=== PATIENT | female | born 1975 ===

== ENCOUNTER 2017-08-18 05:11 | Day surgery (SDC) | payer BC, OTHER ==
[2017-08-17 11:49] VITALS: BMI 25.9
--- NOTE | 2017-08-18 09:20 | HP ---
History & Physical Update - History History: No Change - Physical Physical: No Change - Assessment Assessment: No Change - Plan Plan: No Change (H&P up-to-date from 07/29/17 Consent signed and witnessed)
[2017-08-18] MEDS ORDERED: ONDANSETRON 4 MG/2 ML VIAL IVPUSH PRN (09:34)
[2017-08-18] MEDS ORDERED: IBUPROFEN 600 MG TABLET (FP) PO PRN (09:34)
[2017-08-18] MEDS ORDERED: oxyCODONE HCL 5 MG TABLET PO PRN (09:34)
[2017-08-18] MEDS ORDERED: IBUPROFEN 800 MG/8 ML IJ IVPB PRN (09:34)
[2017-08-18] MEDS ORDERED: MIDAZOLAM HCL 2 MG/2 ML SINGLE DOSE VIAL ONE (09:38)
--- NOTE | 2017-08-18 09:38 | OP ---
Operative Note - Note: Operative Date: 08/18/17 Pre-Operative Diagnosis: 42yo P3 with heavy menses, anemia. Operation: Hysteroscopy, D&C, Endometrial ablation Findings: Retroverted normal size uterus, bilateral ostia vusualized, no masses Completed Genesys/HTA cycle Post-Operative Diagnosis: Same as Pre-op Surgeon: Rhoda Calhoun Anesthesiologist/DRIER TENDER NAPHTHALENE: Rj Borges Anesthesia: MAC Specimens Removed: Endometrial curettings Estimated Blood Loss (mls): 0 Instrument used (Debridements only): Genesys by [employer] [place] [employer] Drains, Volume Out (mls): 100 Fluid Volume Replaced (mls): 600 Operative Report Dictated: Yes
[2017-08-18] MEDS ORDERED: ELECTROLYTE-148 SOLN 1,000 ML IV SCH (09:45)
[2017-08-18] MEDS ORDERED: LACTATED RINGERS SOLUTION 1,000 ML IV SCH (10:30)
[2017-08-18] MEDS ORDERED: SILVER NITRATE 75% APPLIC STCK 1 PKT EACH TP ONE (10:47)
[2017-08-18] MEDS ORDERED: oxyCODONE HCL 5 MG TABLET ONE (11:49)
[2017-08-18] MEDS ORDERED: ONDANSETRON 4 MG/2 ML VIAL ONE (11:49)
[2017-08-18] MEDS ORDERED: ACETAMINOPHEN INJECTION 100 ML IVPB ONE (12:12)
[2017-08-18] MEDS ORDERED: ACETAMINOPHEN 1000 MG/100 ML VIAL (NON FORMULARY) IVPB ONE (12:13)
[2017-08-18 16:40] VITALS: TEMP 98
[2017-08-18 18:05] VITALS: BP 130/70; PULSE 68
--- NOTE | 2017-08-19 16:30 | PATH ---
Surgical Pathology Report Patient Name: JOHN LECHUGA [facility]. Rec. #: [id number] /Age/Gender: 1975 (Age: 42) / F Account: [id number] Location: [facility] Taken: 08/18/2017 Received: 08/18/2017 Reported: 08/19/2017 Physicians: Rhoda Calhoun M.D. Specimen(s) Received ENDOMETRIAL CURETTINGS Clinical History Menorrhagia Final Diagnosis ENDOMETRIAL CURETTINGS: FEW POLYPOID FRAGMENTS OF ENDOMETRIAL TISSUE WITH FOCAL FIBROTIC STROMA, SUGGESTIVE OF ENDOMETRIAL POLYP. SEPARATE WEAKLY PROLIFERATIVE/INACTIVE ENDOMETRIUM. SEPARATE FRAGMENTS ENDOCERVICAL POLYP. FRAGMENTS OF ENDOCERVICAL TISSUE WITH SQUAMOUS METAPLASIA. Electronically Signed Justo Vick M.D. Gross Description Received in formalin labeled "endometrial curettings," is a 2.2 x 1.5 x 0.3 cm aggregate of [place] red soft tissue fragments. The formalin is filtered and the specimen is entirely submitted in one cassette. /08/18/2017 formerly [facility]08/18/2017
--- NOTE | 2017-08-23 21:59 | OP ---
DATE OF OPERATION: 08/18/2017 PREOPERATIVE DIAGNOSIS: A 42-year-old, para 3, who is having menses and anemia. OPERATION: Hysteroscopy, dilation and curettage, endometrial ablation. POSTOPERATIVE DIAGNOSIS: A 42-year-old, para 3, who is having menses and anemia. FINDINGS: Retroverted normal size uterus, bilateral ostia visualized, no masses, completed Genesys HTA cycle. SURGEON: Bibi Love MD ANESTHESIOLOGIST: Rj Borges MD ANESTHESIA: MAC. SPECIMENS REMOVED: Endometrial curettings. DESCRIPTION OF THE OPERATIVE PROCEDURE: After assuring informed consent, the patient was brought to the operating room, where she was placed in dorsal lithotomy position. Perineum and vagina were prepped and draped in sterile fashion. Bladder was emptied with a straight catheter. The Huang retractors were placed into the vagina. Anterior lip of the cervix was articulated with a single-tooth tenaculum. Cervix was dilated with DeLee dilators to accommodate 5-mm hysteroscope. The diagnostic cycle was performed with HTA Genesys. No polyps or fibroids were visualized in the uterus. Hysteroscope was removed and curettage, surgical curette gauge 3, was performed and specimen was sent to Pathology. Subsequently the hysteroscope was reintroduced into the uterus and full HTA 10-minute cycle was completed with good cervical feel and temperature raising to 92 degrees, 2-minute cooling cycle was performed. Subsequently the hysteroscope and all instruments were removed from cervix and the vagina. All sponge and instrument count was correct x2. Estimated blood loss was 0 mL. Patient drained 100 mL of urine and received 600 mL of IV fluids. BIBI LOVE M.D. [id number]
== END 2017-08-18 18:07 | disposition home or self-care (01) ==
LOC: JASU-SURG 05:11
PROVIDERS: ATTEND Obstetrics & Gynecology
PROC: 0U5B8ZZ Destruction of Endometrium, Via Natural or Artificial Opening Endoscopic (ICD-10-PCS; principal; 2017-08-18 10:30)
PROC: 0UDB7ZX Extraction of Endometrium, Via Natural or Artificial Opening, Diagnostic (ICD-10-PCS; 2017-08-18 10:30)
DX: N93.8 Other specified abnormal uterine and vaginal bleeding (principal)
CPT/HCPCS: 84703; 88305-TC; 94760; J0131